=== PATIENT | male | born 1990 | race Caucasian/White ===

== ENCOUNTER 2019-02-02 18:32 | Emergency (ER) | payer MEDICAID ==
[~2019-02-02] VITALS: Ht 180.3 cm; Wt 74.8 kg
--- NOTE | 2019-02-02 18:44 | NUR ---
ED Nurse Note: shruthi Nolen from [facility] pt having halusinations that people are going to stab him. ermd eval done blood sent pt unable to provide urine at this time ermd aware.
[2019-02-02] MEDS ORDERED: LORazepam 1mg tab ORAL ONE (18:45)
[2019-02-02] MEDS ORDERED: Depakote 500mg tab ORAL ONE (18:45)
[2019-02-02 18:46] VITALS: BP 148/78
[2019-02-02 18:51] LABS: BASOPHILS % (AUTO) 1.4 % (0.0-2.0); EOSINOPHILS % (AUTO) 0.7 % (0.0-3.0); HEMATOCRIT 35.9 % (42.0-52.0); HEMOGLOBIN 12.5 G/DL (14.2-18.0); MEAN CORPUSCULAR VOLUME 83 FL (80-99); MONOCYTES % (AUTO) 15.5 % (1.0-10.0); NEUTROPHILS % (AUTO) 63.4 % (45.0-75.0); PLATELET COUNT 227 K/UL (150-450); RED BLOOD COUNT 4.35 M/UL (4.70-6.10); RED CELL DISTRIBUTION WIDTH 11.5 % (11.6-14.8); WHITE BLOOD COUNT 9.3 K/UL (4.8-10.8)
[2019-02-02 19:06] LABS: APPEARANCE,URINE CLEAR; BILIRUBIN, URINE NEGATIVE (NEGATIVE); GLUCOSE, URINE (UA) NEGATIVE (NEGATIVE); KETONES,URINE 2+ (NEGATIVE); LEUKOCYTE ESTERASE ,URINE 1+ (NEGATIVE); NITRITE,URINE NEGATIVE (NEGATIVE); PH,URINE 6 (4.5-8.0); PROTEIN,URINE 1+ (NEGATIVE); UROBILINOGEN,URINE 4 MG/DL (0.0-1.0)
--- NOTE | 2019-02-02 19:08 | NUR ---
ED Nurse Note: urine sent to lab
[2019-02-02 19:10] LABS: COLOR,URINE YELLOW
--- NOTE | 2019-02-02 19:11 | NUR ---
HAND-OFF: Report given to Angie WANG.
--- NOTE | 2019-02-02 19:11 | NUR ---
ED Nurse Note: pt placed in hospital gown.
[2019-02-02 19:12] LABS: ANION GAP 11 mmol/L (5-15); BLOOD UREA NITROGEN 22 mg/dL (7-18); CALCIUM 9.2 MG/DL (8.5-10.1); CARBON DIOXIDE 26 MMOL/L (21-32); CHLORIDE 99 MMOL/L (98-107); CREATININE 0.8 MG/DL (0.55-1.30); POTASSIUM 3.4 MMOL/L (3.5-5.1); SODIUM 136 MMOL/L (136-145)
--- NOTE | 2019-02-02 19:12 | NUR ---
ED Nurse Note: Received report from Luly/ RN. Pt is awake, cooperative. VSS, will continue to monitor.
[2019-02-02 19:20] LABS: ALANINE AMINOTRANSFERASE 141 U/L (12-78); ALBUMIN 3.5 G/DL (3.4-5.0); ALBUMIN/GLOBULIN RATIO 0.9 (1.0-2.7); ALKALINE PHOSPHATASE 59 U/L (46-116); ASPARTATE AMINO TRANSFERASE 88 U/L (15-37); BILIRUBIN,TOTAL 0.5 MG/DL (0.2-1.0)
--- NOTE | 2019-02-02 19:30 | NUR ---
One of the ER Techs at bedside as a sitter.
--- NOTE | 2019-02-02 19:35 | NUR ---
ED Nurse Note: Pt's belongings kept in L[address]#.
--- NOTE | 2019-02-02 19:44 | Emergency Room Report ---
History of Present Illness General Chief Complaint: Behavioral Complaint Source: Patient (Arnoldo Arnold MD) Present Illness HPI Patient is a 28-year-old male who presented after increased auditory hallucinations. Patient was brought in by EMS. Patient reports being off his medications for approximately 3 days. He reports having recent methamphetamine use. He states he was last night. Patient has prior history of psychiatric disease and states he normally takes Remeron, Depakote 1000 mg, and Xanax. Patient states he had not taken his medications for several days. He reports having increased auditory hallucinations and concern the people are out to get him. (Arnoldo Arnold MD) Allergies: Coded Allergies: QUETIAPINE (Verified Allergy, Intermediate, 02/02/19) leg pain Patient History Past Medical History: see triage record Reviewed Nursing Documentation: PMH: Agreed; PSxH: Agreed (Arnoldo Arnold MD) Nursing Documentation-PMH History Of Psychiatric Problem: Yes (Arnoldo Arnold MD) Review of Systems All Other Systems: negative except mentioned in HPI (Arnoldo Arnold MD) Physical Exam Vital Signs Date Time Temp Pulse Resp B/P (MAP) Pulse Ox O2 Delivery O2 Flow Rate FiO2 02/02/19 18:28 98.1 80 18 98 Room Air 02/02/19 18:46 148/78 Sp02 EP Interpretation: reviewed, normal General Appearance: alert/responsive, no apparent distress, GCS 15, non-toxic Head: atraumatic Eyes: PERRL, lids + conjunctiva normal ENT: hearing intact, no angioedema Neck: supple/symm/no masses, no meningismus Respiratory: effort normal, no wheezing, chest symmetrical Cardiovascular: regular rate, rhythm, no edema Cardiovascular #2: 2+ carotid (R), 2+ carotid (L), 2+ dorsalis pedis (R), 2+ dorsalis pedis (L) Gastrointestinal: non-tender, no mass, non-distended, no rebound/guarding, normal bowel sounds Musculoskeletal: gait & station normal, strength & tone normal, normal ROM, non -tender Neurologic: oriented x3, sensory intact, normal speech Skin: no rash, well hydrated Lymphatic: normal inspection (Arnoldo Arnold MD) Medical Decision Making Diagnostic Impression: Primary Impression: Psychosis Qualified Codes: F23 - Brief psychotic disorder Additional Impression: Methamphetamine abuse ER Course Patient presented for Auditory hallucinations. Differential diagnoses include substance abuse, psychosis, bipolar disorder, depression, malingering. Because of complexity of patient's case laboratory test were ordered. Patient was noted to be therapeutic on his Depakote level. Patient was given usual dosage of Depakote. He was additionally given Remeron. Patient was noted to be searching for objects in the drawers of the room in which he was placed. Patient appears to be calm and cooperative and does not have any definite grave disability at this time. Patient is medically cleared for psychiatric evaluation. (Arnoldo Arnold MD) ER Course Patient signout to me. Patient presents with auditory hallucination and paranoia. Said he has been taking his medication but therapeutic on his Depakote level. Also positive for methamphetamine. Patient slept for several hours. Now his awake. Not suicidal or homicidal. Denies any hallucination now. No criteria for 5150 at this moment in time. We'll discharge home. This patient is a chronic risk of self injury due to poor impulse control, limited coping skills, and judgment intermittently impaired by intoxication. I believe that the available clinical evidence to suggest that these characteristics derived primarily from personality disorder and are likely very stable over time. Hospitalization would likely attenuate risk of self-harm only during senior living period, without lasting risk reduction. Serious self-harm , while possible, would likely be inadvertent, and because of impulsivity, and foreseeable. For these reasons, I do not believe hospitalization would provide meaningful reduction in risk of self-harm. (Josh Serrato MD) Last Vital Signs Date Time Temp Pulse Resp B/P (MAP) Pulse Ox O2 Delivery O2 Flow Rate FiO2 02/02/19 19:08 80 18 02/02/19 18:46 98.1 148/78 98 Room Air (Arnoldo Arnold MD) Status: improved (Josh Serrato MD) Disposition: HOME, SELF-CARE Condition: Stable Referrals: NOT CHOSEN IPA/,REFERRING (PCP) Patient Instructions: Self-Destructive Behavior Additional Instructions: Abstain from drugs and alcohol. Follow-up with your Dr. and mental health specialist within a week. Return if worse. Arnoldo Arnold MD February 02, 2019 19:44 Josh Serrato MD February 03, 2019 04:57
[2019-02-02 21:30] VITALS: BP 145/74
--- NOTE | 2019-02-02 21:50 | NUR ---
ED Nurse Note: Pt is resting in bed quietly at this time, waiting for transfer.
[2019-02-03 04:35] VITALS: BP 141/73
--- NOTE | 2019-02-03 04:35 | NUR ---
ED Nurse Note: Provided 2 cups of orange juice and a sandwiches, Pt is A/O X4. VSS.
[2019-02-03 05:30] VITALS: BP 137/72
--- NOTE | 2019-02-03 05:30 | NUR ---
Homeless Discharge: Patient is being discharged from medical care. Awake, alert and oriented x4. After care instructions, including referral to community resources were given. Patient verbalized understanding of After care instructions. Patient does not request medications, equipment or placement at this time. Patient signed patient consent in the medical record for patient destination upon discharge. All medical devices such as ID band was removed. Patient ambulated out with steady gait and all personal belongings.
== END 2019-02-03 05:30 | disposition home or self-care (01) ==
LOC: EDBD 18:32 → EMR 18:52
DX: F23 Brief psychotic disorder (principal); F15.10 Other stimulant abuse, uncomplicated; Z88.8 Allergy status to other drugs, medicaments and biological substances
CPT/HCPCS: 36415; 80053; 80164; 80307; 80329; 81003; 85025; 99284